=== PATIENT | female | born 1990 | race Caucasian/White ===

== ENCOUNTER 2019-03-01 10:03 | Emergency (ER) | payer MEDICAID ==
[~2019-03-01] VITALS: Ht 162.6 cm; Wt 66.2 kg
[2019-03-01 10:11] VITALS: Ht 162.6 cm; Wt 66.2 kg
[2019-03-01 11:19] LABS: LIPASE 63 IU/L (73-393)
[2019-03-01 11:29] LABS: AMYLASE 23 U/L (25-115)
[2019-03-01 12:31] VITALS: BP 117/70
[2019-03-01 12:50] LABS: CALCIUM 8.3 mg/dL (8.5-10.1); CARBON DIOXIDE 28.8 mmol/L (21-32); CHLORIDE SERUM 101 mmol/L (98-107); CREATININE SERUM 0.9 mg/dL (0.6-1.0); GFR1 > 60 mL/min; GLUCOSE SERUM 84 mg/dL (74-106); SODIUM SERUM 137 mmol/L (136-145)
== END 2019-03-01 12:31 | disposition home or self-care (01) ==
LOC: ED 10:03
PROVIDERS: Emergency Medicine
DX: R55 Syncope and collapse (principal); R42 Dizziness and giddiness; R10.31 Right lower quadrant pain; Z98.890 Other specified postprocedural states
CPT/HCPCS: J1885